=== PATIENT | female | born 1960 ===

== ENCOUNTER 2024-04-28 06:16 | Inpatient (IN) | payer OTHER ==
[~2024-04-28] VITALS: Ht 160 cm; Wt 63.3 kg
[2024-04-28] MEDS: OXYCODONE W/ ACETAMINOPHEN 5/325MG TABLET PO ONE (08:03)
[2024-04-28 08:53] VITALS: PULSE 84; RESP 17; O2SAT 96
[2024-04-28] MEDS ORDERED: DOCUSATE SOD 100 MG CAP PO PRN (16:45)
[2024-04-28] MEDS: SODIUM CHLORIDE 0.9% 1,000 ML IV SCH (16:45)
[2024-04-28] MEDS: ENOXAPARIN SOD 40 MG/0.4 ML SYRINGE SC SCH (16:45)
[2024-04-28] MEDS ORDERED: ONDANSETRON HCL 4 MG/2 ML VIAL IV PRN (16:45)
[2024-04-28] MEDS ORDERED: NITROGLYCERIN 0.4 MG SL TAB SL PRN (17:30)
[2024-04-28] MEDS ORDERED: MORPHINE SULFATE INJ 2 MG/ml SYRG IV PRN (17:30)
[2024-04-28 17:37] LABS: INR 1.01 (0.9-1.15); Prothrombin Time 10.7 sec (9.3-11.8)
[2024-04-28 22:36] VITALS: PULSE 85; RESP 20; O2SAT 97
[2024-04-28 22:37] VITALS: BP 146/75; PULSE 80; RESP 16; TEMP 98.4
[2024-04-28] MEDS: MORPHINE SULFATE INJ 2 MG/ml SYRG IV PRN (22:38)
[2024-04-29 01:00] VITALS: BP 154/78; PULSE 81; RESP 18; TEMP 98.2; O2SAT 99
[2024-04-29 05:00] VITALS: BP 150/70; PULSE 72; RESP 16; TEMP 98.6; O2SAT 96
[2024-04-29 06:43] LABS: Basophils # (auto) 0 10 ^3/uL (0-0.2); Basophils % (auto) 0.7 % (0.0-2.0); Eosinophils # (auto) 0.1 10 ^3/uL (0-0.8); Eosinophils % (auto) 0.9 % (0.0-7.0); Hematocrit 38.5 % (36.0-46.0); Hemoglobin 13.1 g/dL (12.2-16.2); Lymphocytes # (auto) 1.1 10 ^3/uL (0.4-5.4); Lymphocytes % (auto) 16.4 % (10.0-50.0); Mean Corpuscular Hgb Conc. 33.9 g/dL (32.0-36.0); Mean Corpuscular Volume 91.6 fL (80.0-100.0); Monocytes # (auto) 0.7 10 ^3/uL (0-1.3); Monocytes % (auto) 10.7 % (0.0-12.0); Neutrophils # (auto) 4.8 10 ^3/uL (1.6-8.6); Neutrophils % (auto) 71.3 % (37.0-80.0); Red Blood Cells 4.21 10^6/uL (4.0-5.20); Red Cell Distribution Width 15.1 % (11.8-14.3); White Blood Cell 6.8 10^3/uL (4.4-10.8)
[2024-04-29 06:53] LABS: Alanine Aminotransferase 11 U/L (7-40); Albumin 3.9 g/dL (3.2-4.8); Alkaline Phosphatase 134 U/L (46-116); Anion Gap 5 (5-15); Aspartate Aminotransferase 15 U/L (13-40); BUN/Creatinine Ratio 11.8 (10.0-20.0); Blood Urea Nitrogen 6 mg/dL (9-23); Calcium 8.9 mg/dL (8.5-10.1); Carbon Dioxide 25 mmol/L (20-30); Chloride 109 mmol/L (98-107); Glucose 109 mg/dL (74-106); Potassium 3.7 mmol/L (3.5-5.1); Sodium 139 mmol/L (136-145)
[2024-04-29 06:54] LABS: Bilirubin, Total 1.2 mg/dL (0.2-1.0); Total Protein 6.3 g/dL (5.7-8.2)
[2024-04-29 09:00] VITALS: BP 161/77; PULSE 71; RESP 21; TEMP 98.3; O2SAT 96
[2024-04-29 13:00] VITALS: BP 152/70; PULSE 76; RESP 17; TEMP 98.7; O2SAT 96
[2024-04-29] MEDS ORDERED: ACE3T PO (14:58)
[2024-04-29] MEDS ORDERED: ZOFR4T PO (14:58)
[2024-04-29 16:59] VITALS: BP 127/63; PULSE 79; RESP 17; TEMP 98.6; O2SAT 95
== END 2024-04-29 17:35 | disposition home or self-care (01) | DRG 563 ==
LOC: ER 06:16 → OVERFLOW 17:29 → EAST 21:30
PROVIDERS: ADMIT Nurse Practitioner Family; ATTEND Nurse Practitioner Acute Care
DX: S42.291A Other displaced fracture of upper end of right humerus, initial encounter for closed fracture (principal); S80.02XA Contusion of left knee, initial encounter; M06.9 Rheumatoid arthritis, unspecified; S83.92XA Sprain of unspecified site of left knee, initial encounter; F17.200 Nicotine dependence, unspecified, uncomplicated; W01.0XXA Fall on same level from slipping, tripping and stumbling without subsequent striking against object, initial encounter; Y93.89 Activity, other specified; Y92.89 Other specified places as the place of occurrence of the external cause; Y99.8 Other external cause status
CPT/HCPCS: 36415; 71045; 73030; 73200; 73562; 80053; 85025; 85610; 86850; 86900; 86901; 96360; 96372; G0378